=== PATIENT | male | born 1970 | race Caucasian/White ===

== ENCOUNTER 2021-11-08 06:53 | Outpatient (CLI) | payer BC | END 2021-11-08 06:54 | disposition home or self-care (01) | LOC: BICCT 06:53 | PROVIDERS: ATTEND Family Medicine | DX: R91.1 Solitary pulmonary nodule (principal); R10.84 Generalized abdominal pain; J84.10 Pulmonary fibrosis, unspecified | CPT/HCPCS: 71260 ==